=== PATIENT | female | born 1985 ===

== ENCOUNTER 2018-06-17 07:53 | Outpatient (CLI) | payer OTHER ==
--- NOTE | 2018-06-17 11:37 | Fluoroscopy Report ---
MODIFIED BARIUM SWALLOW History: dysphagia. Findings: Video radiography was provided by the radiologist for speech therapy to assess the swallowing mechanism. 1 fluoroscopic image was captured. Impression: Successful modified barium swallow.
== END 2018-06-17 07:54 | disposition home or self-care (01) ==
LOC: PT 07:53
PROVIDERS: ATTEND Otolaryngology
DX: R13.12 Dysphagia, oropharyngeal phase (principal)
CPT/HCPCS: 74230; 92611; G8996; G8997; G8998